=== PATIENT | female | born 1945 | race Caucasian/White ===

== ENCOUNTER 2017-09-20 13:06 | Emergency (ER) | payer MEDICARE, OTHER ==
[~2017-09-20] VITALS: Ht 162.6 cm; Wt 63.5 kg
[~2017-09-20 13:06] MED LIST: ALBU90OI INH; CALCAVITD PO; FEXPSEER PO; Flonase 0.05% N16 GM; HYDACE5 PO; LORA10 PO; MAGIC MOUTHWASH; Naprosyn500 MG PO; Norco 5-325 Ta1 EACH PO; ROPI1 PO; Zithromax250 MG PO
== END 2017-09-20 14:14 | disposition home or self-care (01) ==
LOC: ER 13:06
DX: M17.11 Unilateral primary osteoarthritis, right knee (principal); Z88.5 Allergy status to narcotic agent; Z79.899 Other long term (current) drug therapy
CPT/HCPCS: 73562-RT; 99283